=== PATIENT | female | born 1980 | race Caucasian/White ===

== ENCOUNTER → 2019-11-02 13:41 | Outpatient (BNVA) | payer MEDICAID, SELFPAY | PROVIDERS: Family Provider Family Medicine; Visit Provider Nurse Practitioner | DX: F33.1 Major depressive disorder, recurrent, moderate (principal); F41.1 Generalized anxiety disorder | CPT/HCPCS: 99213 ==

== ENCOUNTER 2019-12-08 12:12 | Outpatient (CLI) | payer MEDICAID, SELFPAY ==
--- NOTE | 2019-12-08 12:20 | XR_ITS ---
WS: [id number] XR ankle RT min 3V* [id number] REASON FOR EXAM: right ankle pain FINDINGS: The fibula shows a plate with a healed fracture. The tibia was normal. The ankle mortise shows no abnormalities. Posterior shelf of the tibia is normal. XR/XR ankle RT min 3V* [id number] IMPRESSION: Healed fracture of the fibula The remaining ankle is normal.
== END 2019-12-08 12:13 | disposition home or self-care (01) ==
LOC: RAD 12:15
PROVIDERS: Family Provider Family Medicine; PCP Family Medicine; Visit Provider Podiatrist Foot & Ankle Surgery
DX: S82.401D Unspecified fracture of shaft of right fibula, subsequent encounter for closed fracture with routine healing (principal); X58.XXXD Exposure to other specified factors, subsequent encounter; M25.571 Pain in right ankle and joints of right foot
CPT/HCPCS: 73610

== ENCOUNTER 2019-12-08 14:49 | Outpatient (CLI) | payer MEDICAID, SELFPAY | END 2019-12-08 14:50 | disposition home or self-care (01) | LOC: SPT 14:50 | PROVIDERS: Family Provider Family Medicine; PCP Family Medicine; Visit Provider Podiatrist Foot & Ankle Surgery | DX: S93.421A Sprain of deltoid ligament of right ankle, initial encounter (principal); X58.XXXA Exposure to other specified factors, initial encounter | CPT/HCPCS: L1902 ==

== ENCOUNTER → 2020-01-25 08:19 | Outpatient (BNVA) | payer MEDICAID, SELFPAY | PROVIDERS: Family Provider Family Medicine; PCP Family Medicine; Visit Provider Nurse Practitioner | DX: F41.1 Generalized anxiety disorder (principal); F33.1 Major depressive disorder, recurrent, moderate | CPT/HCPCS: 99213 ==

== ENCOUNTER 2020-03-18 10:44 | Outpatient (CLI) | payer MEDICAID, SELFPAY ==
--- NOTE | 2020-03-18 10:52 | MM_ITS ---
WS: [id number] BILATERAL DIGITAL SCREENING MAMMOGRAPHY WITH CAD CLINICAL INFORMATION: SCREENING HISTORY: Screening mammogram. No current complaints. COMPARISON: TECHNIQUE: Bilateral CC and MLO views. FINDINGS: Scattered fibroglandular densities bilaterally. No suspicious focal mass, asymmetry, calcifications, or architectural distortion. No evidence of malignancy. Stable intramammary lymph nodes and isodense nodules right breast. MM/[place] [id number] IMPRESSION: BI-RADS: 2-Benign FOLLOW UP: 1 Year Follow-up Recommend return to annual screening mammography.
== END 2020-03-18 10:45 | disposition home or self-care (01) ==
LOC: RADSHAW 10:49
PROVIDERS: PCP Family Medicine; Visit Provider Family Medicine
DX: Z12.31 Encounter for screening mammogram for malignant neoplasm of breast (principal)
CPT/HCPCS: 77067

== ENCOUNTER → 2020-09-05 09:03 | Outpatient (BNVA) | payer MEDICAID, SELFPAY | PROVIDERS: PCP Family Medicine; Visit Provider Nurse Practitioner | DX: F41.1 Generalized anxiety disorder (principal); F33.1 Major depressive disorder, recurrent, moderate | CPT/HCPCS: 99213 ==

== ENCOUNTER → 2020-12-21 08:16 | Outpatient (BNVA) | payer BC, SELFPAY | PROVIDERS: PCP Family Medicine; Visit Provider Nurse Practitioner | DX: F41.1 Generalized anxiety disorder (principal); F33.1 Major depressive disorder, recurrent, moderate | CPT/HCPCS: 99214 ==

== ENCOUNTER → 2021-03-15 12:42 | Outpatient (BNVA) | payer BC, SELFPAY | PROVIDERS: PCP Family Medicine; Visit Provider Nurse Practitioner | DX: F41.1 Generalized anxiety disorder (principal); F33.1 Major depressive disorder, recurrent, moderate | CPT/HCPCS: 99214 ==

== ENCOUNTER → 2021-04-04 14:36 | Outpatient (BNVA) | payer BC, SELFPAY | PROVIDERS: PCP Family Medicine; Visit Provider Social Worker | DX: F41.1 Generalized anxiety disorder (principal); F33.1 Major depressive disorder, recurrent, moderate; F43.12 Post-traumatic stress disorder, chronic | CPT/HCPCS: 90834 ==

== ENCOUNTER → 2021-06-09 07:33 | Outpatient (BNVA) | payer BC, SELFPAY | PROVIDERS: PCP Family Medicine; Visit Provider Nurse Practitioner | DX: F41.1 Generalized anxiety disorder (principal); F33.1 Major depressive disorder, recurrent, moderate | CPT/HCPCS: 99214 ==

== ENCOUNTER → 2021-09-04 07:48 | Outpatient (BNVA) | payer BC, SELFPAY | PROVIDERS: PCP Family Medicine; Visit Provider Nurse Practitioner | DX: F41.1 Generalized anxiety disorder (principal); F33.1 Major depressive disorder, recurrent, moderate | CPT/HCPCS: 99214 ==

== ENCOUNTER 2021-11-28 06:36 | Emergency (ER) | payer BC, MEDICAID, SELFPAY ==
[2021-11-28 06:42] VITALS: BP 155/97; PULSE 72; RESP 18; TEMP 36.2; O2SAT 97; BMI 36.1
--- NOTE | 2021-11-28 06:48 | W.ED.FEMALGU ---
HPI - Female Genitourinary General: Chief complaint: Urogenital-Female Stated complaint: pain in ovaries Time Seen by Provider: 11/28/21 06:48 Source: patient Mode of arrival: ambulatory Limitations: no limitations PFSH ED PFSH: Medical History (Updated 06/13/21 @ 13:37 by Clarita Mendoza) Generalized anxiety disorder Major depressive disorder, recurrent, moderate Psychiatric care Social History Smoking and tobacco status: current every day smoker cigarettes Smoking risk assessment/counseling performed?: Yes Tobacco counseling given: counseling >3 minutes Course Vital Signs: Vital signs: Vital Signs Temperature 97.1 F L 11/28/21 06:42 Pulse Rate 72 11/28/21 06:42 Respiratory Rate 18 11/28/21 06:42 Blood Pressure 155/97 11/28/21 06:42 Pulse Oximetry 97 11/28/21 06:42 Discharge Plan Discharge Condition: Stable Prescriptions: No Action fluoxetine [Prozac] 40 mg capsule 40 mg PO DAILY Qty: 30 0RF clonazepam 1 mg tablet 1 mg PO BID PRN (Reason: anxiety) Qty: 60 1RF fluoxetine [Prozac] 40 mg capsule 40 mg PO DAILY Qty: 30 1RF Coding Level of Care Code ED Superintendent Maintenance for Jocy Villanueva
[2021-11-28 07:01] VITALS: BP 122/84; PULSE 71; RESP 18; TEMP 36.7; O2SAT 95
--- NOTE | 2021-11-28 07:11 | ED_ITS ---
HPI - Back Pain/Injury General: Chief Complaint: Urogenital-Female Stated Complaint: pain in ovaries Time Seen by Provider: 11/28/21 06:48 Source: patient Mode of arrival: ambulatory Limitations: no limitations History of Present Illness: 41-year-old female presents emergency room complaining of left flank pain radiating down into her leg. Is worse when she stands or walks for long period of time better when she sits or even better if she lays. She denies any dysuria urgency or frequency. She is previously had a hysterectomy. She tried various pank-eez-ytefygo medications ibuprofen Tylenol etc. with no significant relief of symptoms. Patient previously had a hysterectomy. She denies any diarrhea any hematochezia or melena. MD elicited complaint: back pain Onset (ago): day(s) Timing: intermittent Severity: moderate Quality: burning Exacerbating factors: walking and deep breaths Relieving factors: supine Associated symptoms: Reports abdominal pain, difficulty walking and tingling/numbness/burning (Left leg); Deny arthralgias, chills, change in bowel habits, dysuria, fatigue, fecal incontinence, fever(s), hematuria, myalgias, nausea, numbness, syncope, urinary frequency, urinary urgency, vomiting or weakness Work related injury: No Review of Systems Const: Denies: fever(s), chills or fatigue ENMT: Denies: throat pain, ear or mastoid pain, nasal discharge or nasal congestion Card: Denies: syncope Resp: Denies: dyspnea, productive cough or non-productive cough GI: Reports: abdominal pain; Denies: nausea, vomiting, fecal incontinence or change in bowel habits : Denies: dysuria, urinary urgency or hematuria Skin/Breast: Denies: rash or pruritus Neuro: Reports: difficulty walking and other (Pain radiating into the left leg from buttocks/left lower quadrant region); Denies: numbness in extremities or weakness in extremities PFSH ED PFSH: Medical History Generalized anxiety disorder Major depressive disorder, recurrent, moderate Psychiatric care Social History Smoking and tobacco status: current every day smoker cigarettes Smoking risk assessment/counseling performed?: Yes Tobacco counseling given: c ounseling >3 minutes Physical Exam Const: COMMON NORMALS: no acute distress GENERAL APPEARANCE: cooperative and comfortable ORIENTATION/CONSCIOUSNESS: Yes awake, Yes oriented to person, Yes oriented to place and Yes oriented to time HENMT: COMMON NORMALS: normocephalic, atraumatic and hearing grossly normal bilaterally HEAD & SCALP: normocephalic and atraumatic Neck/C-Spine: COMMON NORMALS: no JVD Resp: COMMON NORMALS: normal respiratory effort, No retractions, No use of accessory muscles and clear to auscultation bilaterally AUSCULTATION: clear to auscultation bilaterally Cardio: COMMON NORMALS: no JVD, regular rate, regular rhythm and No murmurs present (Cardio) RATE: regular rate RHYTHM: regular rhythm GI: COMMON NORMALS: Soft to palpation and No hepatosplenomegaly present AUSCULTATION: Yes normoactive bowel sounds PALPATION: Yes Soft to palpation, No Tenderness to palpation present (GI), No Guarding due to palpation present (GI) and Yes No hepatosplenomegaly present Extremity: COMMON NORMALS: no clubbing, cyanosis or edema, no calf tenderness and no pedal edema OTHER: Straight leg raising negative dorsum plantar flexion 5 5 neurovascular intact sensation normal lower extremity. Neuro: SENSORIUM/ORIENTATION: Yes oriented to person, Yes oriented to place and Yes oriented to time Skin: COMMON NORMALS: no rashes or lesions noted GENERAL SKIN EXAM: no rash es or lesions noted Course Vital Signs: Vital signs: Vital Signs Temperature 98.0 F 11/28/21 07:01 Pulse Rate 65 11/28/21 09:47 Respiratory Rate 16 11/28/21 09:47 Blood Pressure 145/97 11/28/21 09:47 Pulse Oximetry 96 11/28/21 09:47 MDM - Back Pain/Injury Medical Decision Making No real abdominal findings on exam. Patient refers to pain radiating onto the left pelvic area into the left leg. It began while she was twisting and lifting she felt a popping sensation seems more radicular in nature she is quite convinced that is something to do with her ovary. Many years ago had a hysterectomy her urine did not show any blood she had stated she had a little vaginal spotting but is not been persistent. Suspect this is more sciatica-like given the incidence around the onset. We will get an outpatient pelvic ultrasound. Started anti-inflammatories patient did have improvement with medications given here follow-up with primary care return if worsens Medical Records I reviewed the patient's medical records. Labs I reviewed the patient's lab results. : 11/28/21 07:30 11/28/21 08:12 Laboratory Results WBC 5.0 10^3/uL (4.0-10.0) 11/28/21 07:30 RBC 4.94 10^6/uL (4.1-5.3) 11/28/21 07:30 Hgb 15.1 g/dL (11.5-15.3) 11/28/21 07:30 Hct 44.6 % (37.0-47.0) 11/28/21 07:30 MCV 90.3 fl (81-99) 11/28/21 07:30 MCH 30.6 pg (28.0-34.0) 11/28/21 07:30 MCHC 33.9 g/dL (30.0-36.0) 11/28/21 07:30 RDW 13.0 % (12.1-15.1) 11/28/21 07:30 Plt Count 328 10^3/cmm (130-400) 11/28/21 07:30 MPV 9.5 fL (7.4-10.4) 11/28/21 07:30 Neut % (Auto) 53.3 % 11/28/21 07:30 Lymph % (Auto) 35.9 % 11/28/21 07:30 [place] % (Auto) 6.0 % 11/28/21 07:30 Eos % (Auto) 3.2 % 11/28/21 07:30 Baso % (Auto) 1.4 % 11/28/21 07:30 Neut # (Auto) 2.69 10^3/uL (1.8-7.7) 11/28/21 07:30 Lymph # (Auto) 1.8 10^3/uL (0.8-4.8) 11/28/21 07:30 [place] # (Auto) 0.3 10^3/uL (0.2-0.9) 11/28/21 07:30 Eos # (Auto) 0.2 10^3/uL (0.0-0.8) 11/28/21 07:30 Baso # (Auto) 0.1 10^3/uL (0.0-0.1) 11/28/21 07:30 Nucleated RBC % (auto) 0 % 11/28/21 07:30 Nucleated RBCs # 0.0 /100WBC 11/28/21 07:30 Sodium 135 mmol/L (136-145) L 11/28/21 08:12 Potassium 4.2 mmol/L (3.5-5.1) 11/28/21 08:12 Chloride 101 mmol/L (98-107) 11/28/21 08:12 Carbon Dioxide 26 mmol/L (22-29) 11/28/21 08:12 Anion Gap 12.2 (5-19) 11/28/21 08:12 BUN 10 mg/dL (6-20) 11/28/21 08:12 Creatinine 0.5 mg/dL (0.5-0.9) 11/28/21 08:12 GFR Calculation 135.3 mL/min (90-130) H 11/28/21 08:12 Glucose 114 mg/dL (65-115) 11/28/21 08:12 Calculated Osmolality 280 mOsm/kg (285-295) L 11/28/21 08:12 Calcium 8.7 mg/dL (8.5-10.5) 11/28/21 08:12 Urine Color Yellow (Yellow) 11/28/21 07:54 Urine Appearance Clear (CLEAR) 11/28/21 07:54 Urine pH 7 (5-7) 11/28/21 07:54 Ur Specific [place] 1.005 (1.005-1.030) 11/28/21 07:54 Urine Protein Neg (Negative) 11/28/21 07:54 Urine Glucose (UA) Norm (Normal) 11/28/21 07:54 Urine Ketones Negative (Negative) 11/28/21 07:54 Urine Blood Neg (Negative) 11/28/21 07:54 Urine Nitrate Negative (Negative) 11/28/21 07:54 Urine Bilirubin Neg (Negative) 11/28/21 07:54 Urine Urobilinogen Norm mg/dL (Negative) 11/28/21 07:54 Ur Leukocyte Esterase Negative (Negative) 11/28/21 07:54 Discharge Plan Discharge Patient Disposition: Home Clinical Impression: Sciatica, Pelvic pain Condition: Stable Prescriptions: New prednisone 20 mg tablet 20 mg PO TID Qty: 15 0RF Rx Instructions: 1 tablet 3 times daily x3 days, 1 tablet twice daily x2 days, 1 tablet daily x2 days diclofenac sodium 75 mg tablet,delayed release (DR/EC) 75 mg PO Q12H PRN (Reason: pain) Qty: 20 0RF No Action fluoxetine [Prozac] 40 mg capsule 40 mg PO DAILY Qty: 30 0RF clonazepam 1 mg tablet 1 mg PO BID PRN (Reason: anxiety) Qty: 60 1RF fluoxetine [Prozac] 40 mg capsule 40 mg PO DAILY Qty: 30 1RF Discharge Orders: Discharge ED (Routine); Ordered 11/28/21 Ordered By: Aguilar Recio Discharge Diet: Usual diet Discharge Activity: Resume usual activity Patient Instructions: Opioid Safety Activity Restrictions/Additional Instructions: Follow-up with your primary care doctor within the week. credit department manager will call make arrangements for a pelvic ultrasound Coding Level of Care Code ED [place] Boner for Chg Fwd Exam Comprehensive
[2021-11-28 07:36] VITALS: BP 158/103; PULSE 70; RESP 18; O2SAT 96
[2021-11-28 07:44] LABS: Basophils # 0.1 10^3/uL (0.0-0.1); Basophils % 1.4 %; Eosinophils # 0.2 10^3/uL (0.0-0.8); Eosinophils % 3.2 %; Hematocrit 44.6 % (37.0-47.0); Hemoglobin 15.1 g/dL (11.5-15.3); Lymphocytes # 1.8 10^3/uL (0.8-4.8); Lymphocytes % 35.9 %; Mean Corpuscular HGB Conc 33.9 g/dL (30.0-36.0); Mean Corpuscular Hemoglobin 30.6 pg (28.0-34.0); Mean Corpuscular Volume 90.3 fl (81-99); Mean Platelet Volume 9.5 fL (7.4-10.4); Monocytes # 0.3 10^3/uL (0.2-0.9); Neutrophils # 2.69 10^3/uL (1.8-7.7); Neutrophils % 53.3 %; Nucleated Red Blood Cells % 0 %; Platelet Count 328 10^3/cmm (130-400); Red Blood Count 4.94 10^6/uL (4.1-5.3)
[2021-11-28 07:56] VITALS: RESP 16
[2021-11-28] MEDS: morphine 4 mg/mL SDV 1 mL IVP (07:56)
[2021-11-28] MEDS: ketorolac 30 mg/mL INJ IVP (07:56)
[2021-11-28] MEDS: dexamethasone 10 mg/mL INJ IVP (07:56)
[2021-11-28] MEDS: orphenadrine 30 mg/mL Inj 2 mL 60 MG IVP (07:58)
[2021-11-28 08:39] LABS: Anion Gap 12.2 (5-19); Blood Urea Nitrogen 10 mg/dL (6-20); Calcium 8.7 mg/dL (8.5-10.5); Carbon Dioxide 26 mmol/L (22-29); Chloride 101 mmol/L (98-107); Glomerular Filtration Rate 135.3 mL/min (90-130); Glucose 114 mg/dL (65-115); Osmolality Calculated 280 mOsm/kg (285-295); Potassium 4.2 mmol/L (3.5-5.1); Sodium 135 mmol/L (136-145)
[2021-11-28 08:41] LABS: Add Urine Microscopic? NO; Charge for UA Resulting for Rev
[2021-11-28 08:50] LABS: Urine Appearance Clear (CLEAR); Urine Color Yellow (Yellow)
[2021-11-28 08:51] LABS: Bilirubin Urine Neg (Negative); Blood Urine Neg (Negative); Glucose Urine UA Norm (Normal); Ketones Urine Negative (Negative); Leukocyte Esterase Urine Negative (Negative); Nitrate Urine Negative (Negative); Protein Urine Neg (Negative); Specific Gravity, Urine 1.005 (1.005-1.030); Urobilinogen Urine Norm (Negative); pH Urine 7 (5-7)
[2021-11-28] MEDS: HYDROcodone-acetaminophen 5-325 mg Tablet 1 TAB PO (09:44)
[2021-11-28 09:47] VITALS: BP 145/97; PULSE 65; RESP 16; O2SAT 96
--- NOTE | 2021-12-12 15:25 | DCPLANNER ---
it application development manager had message to schedule an outpatient ultrasound for patient. There is not a primary care physician on patients chart, catalytic case operator can not schedule an outpatient test without having a physician to send the results to. it application development manager called phone number [phone] to speak with patient to find out who patients primary care is. it application development manager was unable to speak with patient at this time, a voicemail was left for patient to return test case developer phone call.
== END 2021-11-28 09:50 | disposition home or self-care (01) ==
PROVIDERS: Emergency Provider Family Medicine
DX: R10.2 Pelvic and perineal pain (principal); M54.30 Sciatica, unspecified side; F17.210 Nicotine dependence, cigarettes, uncomplicated
CPT/HCPCS: 80048; 81003; 85025; 96374; 96375; 99284; J1100; J1885; J2270; J2360

== ENCOUNTER → 2022-01-15 15:32 | Outpatient (BNVA) | payer BC, MEDICAID, SELFPAY | PROVIDERS: Visit Provider Obstetrics & Gynecology | DX: R10.32 Left lower quadrant pain (principal) | CPT/HCPCS: 76830 ==

== ENCOUNTER → 2022-01-23 07:30 | Outpatient (BNVA) | payer BC, MEDICAID, SELFPAY | PROVIDERS: Visit Provider Nurse Practitioner | DX: F41.1 Generalized anxiety disorder (principal); F33.1 Major depressive disorder, recurrent, moderate | CPT/HCPCS: 99214 ==

== ENCOUNTER → 2022-05-08 14:29 | Outpatient (BNVA) | payer BC, SELFPAY | PROVIDERS: PCP Obstetrics & Gynecology; Visit Provider Urology | DX: R93.41 Abnormal radiologic findings on diagnostic imaging of renal pelvis, ureter, or bladder (principal); R10.2 Pelvic and perineal pain; G89.29 Other chronic pain; S76.212A Strain of adductor muscle, fascia and tendon of left thigh, initial encounter | CPT/HCPCS: 52000; 81003; 99203 ==

== ENCOUNTER 2024-06-23 12:55 | Outpatient (CLI) | payer BC, MEDICAID, SELFPAY ==
--- NOTE | 2024-06-23 12:58 | USR_ITS ---
PROCEDURE INFORMATION: Exam: US Pelvis Transabdominal, Complete, and US Pelvis Transvaginal, Non-obstetric Exam date and time: 06/23/2024 1:18 PM Age: 44 years old Clinical indication: Condition or disease; Ovarian conditions; Cyst; Additional info: Complex ovarian cyst, stat TECHNIQUE: Imaging protocol: Real-time complete transabdominal and transvaginal pelvic ultrasound (non-obstetric) with image documentation. Transvaginal imaging was used for better evaluation of the endometrium, adnexa, and/or cervix. COMPARISON: CT abdomen pelvis wo con [id number] 02/14/2022 8:03 AM FINDINGS: Uterus: The uterus is status post hysterectomy. Right ovary/adnexa: Right ovary 4.0 x 3.2 x 3.2 cm transabdominally, 2.8 x 2.8 x 2.4 cm transvaginally. Apparent right ovarian cyst measuring 3.3 x 2.8 x 2.2 cm by transabdominal imaging; on transvaginal imaging this resolves to 2 separate physiologic follicles measuring 17 x 16 x 19 mm and 13 x 14 x 13 mm (i.e. normal findings). No mural nodule. Normal arterial and venous color and pulsed Doppler blood flow. Left ovary/adnexa: Left ovary not identified transabdominally. Left ovary is identified transvaginally, measuring 4.0 x 3.1 x 4.0 cm. 3.2 x 2.6 x 1.9 cm unilocular anechoic cyst. Additional left ovarian 19 mm follicle. Normal arterial and venous color and pulsed Doppler blood flow. Intraperitoneal space: No intraperitoneal fluid. Urinary bladder: Normal. US/US pelv w/transvag [id number] IMPRESSION: 1. Prior hysterectomy. 2. Left ovarian cyst in the physiologic range. Recommendation: No follow-up ([employer], 2019).
== END 2024-06-23 12:56 | disposition home or self-care (01) ==
LOC: RAD 12:55
PROVIDERS: PCP Nurse Practitioner Family; Visit Provider Nurse Practitioner Family
DX: N83.202 Unspecified ovarian cyst, left side (principal); Z90.710 Acquired absence of both cervix and uterus
CPT/HCPCS: 76830; 76856